=== PATIENT | female | born 1950 | race Caucasian/White ===

== ENCOUNTER 2023-09-10 08:41 | Day surgery (SDC) | payer MEDICARE, MEDICAID ==
[~2023-09-10] VITALS: Ht 144.8 cm; Wt 73.4 kg
[~2023-09-10 08:41] MED LIST: CALC1TAB42 PO; CLON0.5T2 PO; DULO1CAP4 PO; ELIQ5TAB PO; IRON65TA2 PO; METO1TAB32 PO; OMEGCAP4 PO; OMEP40CA5 PO; OXYC-517 PO; PHENYLEPHRINE 10% OPHTH SOL 5ML OS PRN; PREG75CA3 PO; ROPI0.5T33 PO; ROSU20TA61 PO; SEMA0.257 SQ; SENN8.6T28 PO; TREL1AER INH; TRES1INJ SQ
[2023-09-10] MEDS: LIDOCAINE 3.5 % 1ML OPHTH TOPICAL GEL OU ONE (09:30)
[2023-09-10] MEDS: OFLOXACIN 0.3 % (OCUFLOX) OPTH SOL 5ML OS ONE (09:30)
[2023-09-10] MEDS ORDERED: fentaNYL 100 MCG/2 ML INJECTION As Ordered ONE (09:47)
[2023-09-10] MEDS ORDERED: MIDAZOLAM INJ 2MG/2ML VIAL As Ordered ONE (09:47)
[2023-09-10] MEDS: LIDOCAINE 1% SDV 5ML VIAL As Ordered ONE (09:59)
[2023-09-10] MEDS: BSS IRRIG/VANCO(10MG)/TOBRA(5MG)/EPINEPH(1:1000-0.5CC)500ML BAG-ORONLY As Ordered ONE (09:59)
[2023-09-10] MEDS: CEFUROXIME 1MG/0.1ML INTRACAMERAL INJ As Ordered ONE (09:59)
[2023-09-10 10:11] VITALS: BP 103/52; TEMP 97.4; O2SAT 96
[2023-09-10] MEDS: TROPICAMIDE 1% OPHTH SOLN 15ML OS SCH (10:11)
[2023-09-10] MEDS: PHENYLEPHRINE 2.5% OPHTH SOL 2ML OS SCH (10:11)
[2023-09-10] MEDS: ATROPINE SULFATE 1% OPHTH SOLN 2ML BTL OS SCH (10:11)
== END 2023-09-10 10:30 | disposition home or self-care (01) ==
LOC: M SDC 08:41
PROVIDERS: ATTEND Ophthalmology
DX: H25.12 Age-related nuclear cataract, left eye (principal); H57.03 Miosis; I48.91 Unspecified atrial fibrillation; E11.9 Type 2 diabetes mellitus without complications; Z95.810 Presence of automatic (implantable) cardiac defibrillator; M19.90 Unspecified osteoarthritis, unspecified site; J44.9 Chronic obstructive pulmonary disease, unspecified; J45.909 Unspecified asthma, uncomplicated; D68.9 Coagulation defect, unspecified; Z85.42 Personal history of malignant neoplasm of other parts of uterus; Z85.51 Personal history of malignant neoplasm of bladder; Z79.899 Other long term (current) drug therapy; Z79.01 Long term (current) use of anticoagulants; Z79.891 Long term (current) use of opiate analgesic; Z79.51 Long term (current) use of inhaled steroids
CPT/HCPCS: 66982; J0697; J2250; J3010; V2632

== ENCOUNTER 2023-10-01 10:17 | Day surgery (SDC) | payer MEDICARE, MEDICAID ==
[~2023-10-01] VITALS: Ht 144.8 cm; Wt 73.2 kg
[~2023-10-01 10:17] MED LIST changes: +PHENYLEPHRINE 10% OPHTH SOL 5ML OD PRN; -PHENYLEPHRINE 10% OPHTH SOL 5ML OS PRN
[2023-10-01] MEDS ORDERED: DEXTROSE 50% 50ML SYRINGE IV PRN (11:35)
[2023-10-01] MEDS ORDERED: GLUCOSE 4 GM CHEW PO PRN (11:35)
[2023-10-01] MEDS ORDERED: INSULIN LISPRO (NovoLOG) PER UNIT SC PRN (11:35)
[2023-10-01] MEDS ORDERED: GLUCAGON INJ 1MG VIAL SC PRN (11:35)
[2023-10-01] MEDS: OFLOXACIN 0.3 % (OCUFLOX) OPTH SOL 5ML OD ONE (12:46)
[2023-10-01] MEDS: ATROPINE SULFATE 1% OPHTH SOLN 2ML BTL OD SCH (12:46)
[2023-10-01] MEDS: LIDOCAINE 3.5 % 1ML OPHTH TOPICAL GEL OU ONE (12:46)
[2023-10-01] MEDS: PHENYLEPHRINE 2.5% OPHTH SOL 2ML OD SCH (12:46)
[2023-10-01] MEDS: TROPICAMIDE 1% OPHTH SOLN 15ML OD SCH (12:46)
[2023-10-01] MEDS ORDERED: MIDAZOLAM INJ 2MG/2ML VIAL As Ordered ONE (13:11)
[2023-10-01] MEDS ORDERED: fentaNYL 100 MCG/2 ML INJECTION As Ordered ONE (13:11)
[2023-10-01] MEDS: BSS IRRIG/VANCO(10MG)/TOBRA(5MG)/EPINEPH(1:1000-0.5CC)500ML BAG-ORONLY As Ordered ONE (13:59)
[2023-10-01] MEDS: LIDOCAINE 1% SDV 5ML VIAL As Ordered ONE (13:59)
[2023-10-01] MEDS: CEFUROXIME 1MG/0.1ML INTRACAMERAL INJ As Ordered ONE (13:59)
[2023-10-01 14:10] VITALS: BP 127/75; TEMP 97; O2SAT 97
== END 2023-10-01 14:30 | disposition home or self-care (01) ==
LOC: M SDC 10:17
PROVIDERS: ATTEND Ophthalmology
DX: H25.11 Age-related nuclear cataract, right eye (principal); I48.91 Unspecified atrial fibrillation; E11.9 Type 2 diabetes mellitus without complications; Z87.891 Personal history of nicotine dependence; Z79.899 Other long term (current) drug therapy; Z79.01 Long term (current) use of anticoagulants; Z79.85 Long-term (current) use of injectable non-insulin antidiabetic drugs; Z79.4 Long term (current) use of insulin
CPT/HCPCS: 66984; J0697; J2250; J3010; V2632